=== PATIENT | female | born 1950 | race Caucasian/White ===

== ENCOUNTER → 2022-03-22 | Outpatient (CLI) | payer MEDICARE ==
[2022-03-22 15:42] LABS: CREATININE 0.7 mg/dL (0.5-1.5)
== END | disposition home or self-care (01) ==
LOC: LAB 14:55
PROVIDERS: ATTEND Neurological Surgery
DX: M54.16 Radiculopathy, lumbar region (principal)
CPT/HCPCS: 36415; 82565; 84520

== ENCOUNTER → 2022-04-19 | Outpatient (CLI) | payer MEDICARE ==
[~2022-04-19] MED LIST: GADOTERATE MEGLUMINE 10 MMOL/20 ML VIAL IV ONE
== END | disposition home or self-care (01) ==
LOC: RAH 13:51
PROVIDERS: ATTEND Neurological Surgery
DX: M47.26 Other spondylosis with radiculopathy, lumbar region (principal); M48.061 Spinal stenosis, lumbar region without neurogenic claudication
CPT/HCPCS: 72158; A9575

== ENCOUNTER 2022-07-14 05:38 | Day surgery (SDC) | payer OTHER ==
[2022-07-12 10:36] LABS: BASOPHILS % (AUTO) 0.6 % (0.0-5.0); EOSINOPHILS % (AUTO) 3.2 % (0.0-8.0); HEMATOCRIT 35.9 % (36-48); LYMPHOCYTES % (AUTO) 25.9 % (21.0-51.0); MEAN CORPUSCULAR HEMOGLOBIN 30.7 pg (27.0-33.0); MEAN CORPUSCULAR HGB CONC 32.9 g/dL (32.0-36.0); MEAN CORPUSCULAR VOLUME 93.5 fL (79-99); PLATELET COUNT (AUTO) 263 K/uL (130-400); RED BLOOD CELL COUNT(AUTO) 3.84 MIL/uL (4.00-5.50); WHITE BLOOD COUNT (AUTO) 6.3 K/uL (4.8-10.8)
[2022-07-12 10:42] LABS: CREATININE 0.6 mg/dL (0.5-1.5); POTASSIUM 3.6 mmol/L (3.5-5.1)
[2022-07-13 08:35] VITALS: BP 125/70
[2022-07-14] VITALS (11 sets, daily range): BP systolic 107–130; BP diastolic 52–65
[~2022-07-14] VITALS: Ht 167.6 cm; Wt 66.0 kg
[~2022-07-14 05:38] MED LIST changes: +BUPIVACAINE/PF 0.25% 10ML VIAL IJ ONE; -GADOTERATE MEGLUMINE 10 MMOL/20 ML VIAL IV ONE
[2022-07-14] MEDS ORDERED: LACTATED RINGERS 1000ML 1,000 ML IV ONE (06:18)
[2022-07-14] MEDS ORDERED: LISI5TAB21 PO (06:31)
[2022-07-14] MEDS ORDERED: METO-408 PO (06:31)
[2022-07-14] MEDS ORDERED: MONT-39 PO (06:31)
[2022-07-14] MEDS ORDERED: VENL-53 PO (06:31)
[2022-07-14] MEDS ORDERED: DONE10TA43 PO (06:31)
[2022-07-14] MEDS ORDERED: ISOS60TA77 PO (06:31)
[2022-07-14] MEDS ORDERED: BUSP10TA3 PO (06:31)
[2022-07-14] MEDS ORDERED: ATOR-2 PO (06:31)
[2022-07-14] MEDS ORDERED: EZET10TA48 PO (06:31)
[2022-07-14] MEDS ORDERED: IOHEXOL 180 MG/ML 20 ML VIAL ONE (07:49)
[2022-07-14] MEDS ORDERED: MIDAZOLAM HCL 1 MG/ML 2ML VIAL ONE (08:20)
[2022-07-14] MEDS ORDERED: PROPOFOL 10 MG/ML 20ML VIAL IV ONE (08:25)
[2022-07-14] MEDS ORDERED: FENTANYL CITRATE PF 50 MCG/1 ML 2ML VIAL ONE (08:25)
[2022-07-14] MEDS ORDERED: EPHEDRINE SULFATE 50 MG/ML AMPULE ONE (08:34)
[2022-07-14] MEDS ORDERED: ONDANSETRON 4MG INJ ONE (08:41)
== END 2022-07-14 10:05 | disposition home or self-care (01) ==
LOC: DAH 05:38
PROVIDERS: ATTEND Neurological Surgery
DX: M53.3 Sacrococcygeal disorders, not elsewhere classified (principal); Z20.822 Contact with and (suspected) exposure to COVID-19; J45.909 Unspecified asthma, uncomplicated; I10 Essential (primary) hypertension; Z88.0 Allergy status to penicillin; Z88.2 Allergy status to sulfonamides; Z79.899 Other long term (current) drug therapy
CPT/HCPCS: 87426; 80048; 85025; 36415; 93005; 72202; G0260; A4663; A4215 ×2; J7120; J3010; J3490 ×2; J2250; J2704; J2405; J1030; Q9965; A4223; A4222; A4221

== ENCOUNTER 2022-12-02 05:36 | Day surgery (SDC) | payer OTHER ==
[2022-12-01 08:38] LABS: BASOPHILS % (AUTO) 0.5 % (0.0-5.0); EOSINOPHILS % (AUTO) 1.9 % (0.0-8.0); HEMATOCRIT 33.7 % (36-48); LYMPHOCYTES % (AUTO) 43.2 % (21.0-51.0); MEAN CORPUSCULAR HEMOGLOBIN 31.1 pg (27.0-33.0); MEAN CORPUSCULAR HGB CONC 33.5 g/dL (32.0-36.0); MEAN CORPUSCULAR VOLUME 92.8 fL (79-99); PLATELET COUNT (AUTO) 263 K/uL (130-400); RED BLOOD CELL COUNT(AUTO) 3.63 MIL/uL (4.00-5.50); RED CELL DISTRIBUTION WIDTH 12.8 % (11.0-15.5); WHITE BLOOD COUNT (AUTO) 9.3 K/uL (4.8-10.8)
[2022-12-01 08:56] LABS: CREATININE 0.7 mg/dL (0.5-1.5); POTASSIUM 3.6 mmol/L (3.5-5.1)
[2022-12-01 09:12] VITALS: BP 128/67
[2022-12-02] VITALS (12 sets, daily range): BP systolic 103–126; BP diastolic 52–75
[~2022-12-02] VITALS: Ht 167.6 cm; Wt 67.7 kg
[~2022-12-02 05:36] MED LIST changes: +ATOR-2 PO; -BUPIVACAINE/PF 0.25% 10ML VIAL IJ ONE; +BUSP10TA3 PO; +DONE10TA43 PO; +EZET10TA48 PO; +ISOS60TA77 PO; +LISI5TAB21 PO; +METO-408 PO; +MONT-39 PO; +VENL-53 PO
[2022-12-02] MEDS ORDERED: LACTATED RINGERS 1000ML 1,000 ML IV ONE (06:14)
[2022-12-02] MEDS ORDERED: LIDOCAINE HCL 1% 20 ML VIAL ONE (06:38)
[2022-12-02] MEDS ORDERED: SODIUM BICARB [NEONATAL] 4.2% 10ML SYG ONE (06:39)
[2022-12-02] MEDS ORDERED: BUPIVACAINE/PF 0.25% 10ML VIAL IJ ONE (06:39)
[2022-12-02] MEDS ORDERED: FENTANYL CITRATE PF 50 MCG/1 ML 2ML VIAL ONE (06:53)
[2022-12-02] MEDS ORDERED: MIDAZOLAM HCL 1 MG/ML 2ML VIAL ONE (06:53)
[2022-12-02] MEDS ORDERED: IOHEXOL 180 MG/ML 20 ML VIAL ONE (07:19)
[2022-12-02] MEDS ORDERED: LIDOCAINE HCL 1% 10 ML VIAL MISC ONE (07:35)
[2022-12-02] MEDS ORDERED: SODIUM BICARB 8.4% 50ML SYRINGE IVP ONE (07:35)
== END 2022-12-02 09:05 | disposition home or self-care (01) ==
LOC: DAH 05:36
PROVIDERS: ATTEND Neurological Surgery
DX: M53.3 Sacrococcygeal disorders, not elsewhere classified (principal); Z20.822 Contact with and (suspected) exposure to COVID-19; I10 Essential (primary) hypertension; I25.10 Atherosclerotic heart disease of native coronary artery without angina pectoris; I25.2 Old myocardial infarction; Z88.0 Allergy status to penicillin; Z98.890 Other specified postprocedural states; Z87.891 Personal history of nicotine dependence
CPT/HCPCS: 87426; 80048; 85025; 36415; 93005; 72202; A6260; G0260; A4663; J7120; J3010; J3490 ×4; J2250; J1030 ×2; Q9965; A4215; A4223; A4222; A4221

== ENCOUNTER → 2024-09-17 | Outpatient (CLI) | payer OTHER ==
[~2024-09-17] VITALS: Ht 167.6 cm; Wt 67.6 kg
[~2024-09-17] MED LIST changes: +ACET-2521 PO; +AMIO100T4 PO; +AMIO200T44 PO; +ASPI-1005 PO; +ASPI-1443 PO; -ATOR-2 PO; +ATOR40TA69 PO; +BIOTIN PO; +BREYNA IH; +CHOL2000 PO; +CLOP-31 PO; +DOXE6TAB4 PO; -EZET10TA48 PO; +EZET10TA81 PO; +FLUT16H NS; +FLUTICASONE PROPIONATE 50 MCG EN; +FURO20TA6 PO; +IPRA21SP NS; -ISOS60TA77 PO; +LEVA15HF3 IH; -LISI5TAB21 PO; +MELA5TAB66 PO; -METO-408 PO; +METO25 PO; +NITR0.4T50 SL; +PANT40TA54 PO; +POTA99TA17 PO; +TYLENOL ARTHRITIS PO
[2024-09-17 13:21] VITALS: BP 139/80; PULSE 69; RESP 16; TEMP 97.7
[2024-09-17 13:30] LABS: BASOPHILS # (AUTO) 0.04 K/uL (0.00-0.20); BASOPHILS % (AUTO) 0.7 % (0.0-5.0); EOSINOPHILS # (AUTO) 0.35 K/uL (0.00-0.70); EOSINOPHILS % (AUTO) 5.9 % (0.0-8.0); HEMATOCRIT 33.6 % (36-48); IMMATURE GRANULOCYTE ABSOLUTE 0.02 K/uL (0-1); LYMPHOCYTES # (AUTO) 1.7 K/uL (1.0-4.8); LYMPHOCYTES % (AUTO) 29.1 % (21.0-51.0); MEAN CORPUSCULAR HEMOGLOBIN 30.4 pg (27.0-33.0); MEAN CORPUSCULAR HGB CONC 31.8 g/dL (32.0-36.0); MEAN CORPUSCULAR VOLUME 95.5 fL (79-99); MONOCYTES # (AUTO) 0.5 K/uL (0.1-1.0); MONOCYTES % (AUTO) 8.5 % (3.0-13.0); NEUTROPHILS # (AUTO) 3.3 K/uL (1.8-7.7); NEUTROPHILS % (AUTO) 55.5 % (40.0-77.0); PLATELET COUNT (AUTO) 421 K/uL (130-400); RED BLOOD CELL COUNT(AUTO) 3.52 MIL/uL (4.00-5.50); RED CELL DISTRIBUTION WIDTH 14.6 % (11.0-15.5)
[2024-09-17 13:38] LABS: ADD UA MICROSCOPIC NO; APPEARANCE,URINE CLEAR (CLEAR); BILIRUBIN,URINE NEGATIVE (NEGATIVE); COLOR,URINE COLORLESS (YELLOW); GLUCOSE, URINE (UA) NEGATIVE (NEGATIVE); KETONES,URINE NEGATIVE (NEGATIVE); LEUKOCYTE ESTERASE ,URINE NEGATIVE Leu/uL (NEGATIVE); NITRATE,URINE NEGATIVE (NEGATIVE); OCCULT BLOOD,URINE NEGATIVE (NEGATIVE); PH,URINE 6.5 (5.0-8.0); PROTEIN,URINE NEGATIVE (NEGATIVE); UROBILINOGEN,URINE 0.2 mg/dL (0.2-1.0)
[2024-09-17 13:42] LABS: CREATININE 0.8 mg/dL (0.5-1.0); POTASSIUM 3.3 mmol/L (3.5-5.1)
[2024-09-17 13:51] LABS: B-TYPE NATRIURETIC PEPTIDE 566 pg/mL (0-100)
[2024-09-17 13:53] LABS: INR 0.98 (0.85-1.15); PROTHROMBIN TIME 10.4 SEC (9.6-11.6)
[2024-09-17 13:54] LABS: PARTIAL THROMBOPLASTIN TIME 26.5 SEC (26.3-35.5)
--- NOTE | 2024-09-17 14:02 | EKG ---
[facility] Test Date: 2024-09-17 Test Time: 13:04:04 Pat Name: JASON AYOUB Department: [facility] Room: Gender: F Rose Grower: [id number] : 1950 Requested By: EUSEBIO MANNING Order Number: [id number] Reading MD: Eusebio Manning Measurements Intervals [place] Rate: 62 P: 56 MN: 177 QRS: 40 QRSD: 82 T: 142 QT: 489 QTc: 497 Interpretive Statements Sinus rhythm Ventricular premature complex Abnormal T, consider ischemia, lateral leads Compared to ECG 08/29/2024 20:28:58 Ventricular premature complex(es) now present T-wave abnormality now present Possible ischemia now present ST (T wave) deviation no longer present Myocardial infarct finding no longer present Electronically Signed On 09-19-2024 07:07:20 CDT by Eusebio Manning Please click the below link to view image of tracing.
--- NOTE | 2024-09-17 14:09 | HMCIMG ---
CHEST 1VW HISTORY: Preop COMPARISON: 09/01/2024 FINDINGS: A frontal projection of the chest was obtained. No acute pulmonary infiltrates is seen. Poststernotomy changes are seen. The heart is enlarged. Degenerative changes of the thoracolumbar spine are present. Small left pleural effusion is seen. No evidence of aortic calcification is seen. IMPRESSION: 1. No acute pulmonary infiltrate is seen. Small left pleural effusion is seen.
== END | disposition home or self-care (01) ==
LOC: DAH 12:18 → EDSTATUS 09-18 12:00
PROVIDERS: ATTEND Internal Medicine Cardiovascular Disease
DX: Z01.818 Encounter for other preprocedural examination (principal); J90 Pleural effusion, not elsewhere classified; I49.3 Ventricular premature depolarization; I51.7 Cardiomegaly; I21.9 Acute myocardial infarction, unspecified; I25.118 Atherosclerotic heart disease of native coronary artery with other forms of angina pectoris; M47.815 Spondylosis without myelopathy or radiculopathy, thoracolumbar region; I10 Essential (primary) hypertension; E78.5 Hyperlipidemia, unspecified; I25.2 Old myocardial infarction; Z98.890 Other specified postprocedural states; Z95.5 Presence of coronary angioplasty implant and graft
CPT/HCPCS: 36415; 71045; 80048; 81003; 83880; 85025; 85610; 85730; 93005

== ENCOUNTER 2025-01-09 11:20 | Inpatient (IN) | payer OTHER ==
[~2025-01-09] VITALS: Ht 167.6 cm; Wt 66.7 kg
[~2025-01-09 11:20] MED LIST changes: -ACET-2521 PO; -AMIO200T44 PO; -ASPI-1005 PO; -FLUTICASONE PROPIONATE 50 MCG EN; -FURO20TA6 PO; -IPRA21SP NS; -MELA5TAB66 PO; -PANT40TA54 PO; -POTA99TA17 PO; -TYLENOL ARTHRITIS PO
[2025-01-09] MEDS ORDERED: PoTASSium chl 10% ELIXIR 20MEQ 20 MEQ/15 ML UDCUP PO PRN (12:00)
[2025-01-09 12:02] LABS: NUCLEATED RED BLOOD CELLS 0.0 % (0.0-0.19); PLATELET COUNT (AUTO) 281 K/uL (130-400); RED BLOOD CELL COUNT(AUTO) 4.17 MIL/uL (4.00-5.50); RED CELL DISTRIBUTION WIDTH 17.7 % (11.0-15.5); WHITE BLOOD COUNT (AUTO) 8.6 K/uL (4.8-10.8)
[2025-01-09 12:03] LABS: CREATININE 0.7 mg/dL (0.5-1.0); GLOMERULAR FILTR. RATE CALC 91.0 mL/min (>90); GLUCOSE,RANDOM 129.0 mg/dL (70-105); SODIUM SERUM 143.0 mmol/L (136-145); UREA NITROGEN, BLOOD 24.0 mg/dL (7-18)
[2025-01-09 12:07] LABS: INR 0.97 (0.85-1.15)
[2025-01-09] MEDS ORDERED: BUDE0.5A3 NEB (13:24)
[2025-01-09] MEDS ORDERED: PROM6.2523 PO (13:24)
[2025-01-09] MEDS ORDERED: FURO20TA4 PO (13:24)
[2025-01-09] MEDS ORDERED: PRED20TA3 PO (13:24)
[2025-01-09] MEDS ORDERED: BENZ200C53 PO (13:24)
[2025-01-09] MEDS ORDERED: CETI10TA57 PO (13:24)
[2025-01-09] MEDS ORDERED: IPRA21SP NS (13:24)
[2025-01-09] MEDS ORDERED: DOXY100C5 PO (13:24)
--- NOTE | 2025-01-09 14:11 | NUR ---
DCP: Return to [facility] met with pt and friend at bedside. Pt has a cottage at [facility] where she lives independently at home alone. JK provides house keeping 2x a month, she is able to cook, do laundry, drive, and complete her ADLS on her own. Pt needs to DME at this time, no HH or HD. PCP is Adán Folyd and she uses [facility] for her rx needs. [place]. Sister /JINA Windy Sorenson [phone]. Pt only wants sister called if its life threatening ER, for anything else call friend Rocío Virgilio [phone]. Addendum: 01/09/25 at 1427 by DEEJAY BRUSH Amended: Links added.
--- NOTE | 2025-01-09 14:15 | NUR ---
GAVE REPORT TO AJ GOTTI.
[2025-01-09 14:59] VITALS: BP 117/73; PULSE 58; RESP 16; TEMP 97.9
[2025-01-09 20:00] VITALS: BP 115/63; PULSE 65; RESP 18; TEMP 98.4
[2025-01-09 20:09] VITALS: O2SAT 97
[2025-01-09] MEDS: DOXYCYCLINE HYCLATE 100 MG TABLET PO SCH (20:43)
[2025-01-09 22:00] VITALS: O2SAT 98
[2025-01-10] VITALS (9 sets, daily range): BP systolic 99–144; BP diastolic 48–87; PULSE 56–74; RESP 16–18; TEMP 97.5–98.2; O2SAT 96–97
[2025-01-10 04:57] LABS: CREATININE 0.9 mg/dL (0.5-1.0); GLOMERULAR FILTR. RATE CALC 67.0 mL/min (>90); GLUCOSE,RANDOM 95.0 mg/dL (70-105); SODIUM SERUM 144.0 mmol/L (136-145); UREA NITROGEN, BLOOD 23.0 mg/dL (7-18)
[2025-01-10] MEDS: PoTASSium chloRIDE 20MEQ ER 20 MEQ ERTAB PO PRN (05:09)
--- NOTE | 2025-01-10 07:16 | PN ---
[facility] Cardiology Progress Note CARDIOLOGY PROGRESS NOTE JANUARY 10, 2025 Problems: 1. Acute on chronic systolic heart failure 2. CAD status post remote stenting procedures with progression of disease status post aortocoronary bypass graft surgery August 2024 with a WHITTEN graft to the LAD and saphenous graft to the 1st obtuse marginal artery with documented rotation of occluded grafts September 2024 status post high-risk stenting of a distal left main bifurcation with Impella support 3. Asthma recently started on treatment for acute bronchitis at an urgent care center 4. Hypertension 5. Dyslipidemia 6. Normocytic anemia 7. Noncompliance with clopidogrel therapy The patient was recently seen at an urgent care center for shortness of breath and cough and placed on doxycycline for acute bronchitis. The same time she has been experiencing significant shortness of breath with the exertion and some chest pressure sensation. Since admission her BNP level was 640 and troponins x2 has been normal. EKG in the office showed no acute ST changes. A 2D echocardiogram is pending today. The patient had not been compliant with clopidogrel and has been off this medicine for at least a month. She was loaded with 300 mg of clopidogrel yesterday in the starting back on75 mg daily today. Overnight she diuresed 1700 cc and is feeling much better. Currently she has no pain or shortness of breath. Blood pressure is running 100-110 systolic. Heart rate is in the 50s. White count 8.6 hemoglobin 10.3 Platelet count [id number] potassium 3.9 which will be supplemented BUN23 creatinine 0.9. The patient continues on amiodarone aspirin atorvastatin clopidogrel acetamide furosemide metoprolol tartrate potassium protocol. We are going to resume her losartan medication. We have discussed options today. One option would be to proceed directly with left heart catheterization to check the status of her stents. Given her dramatic improvement overnight however a 2nd option will be to obtain a Cardiolite stress test and consider catheterization if there was objective evidence of ischemia. After discussion she would like to proceed with 2D echo and Cardiolite stress test today. BURAK MANNING MD Jan 10, 2025 07:16
[2025-01-10] MEDS ORDERED: REGADENOSON 0.4 MG/5 ML PF SYG IVP ONE (09:28)
[2025-01-10] MEDS: ASPIRIN 81 MG EC TAB PO SCH (12:47)
[2025-01-10] MEDS: EZETIMIBE 10 MG TAB PO SCH (12:48)
--- NOTE | 2025-01-10 13:00 | NUR ---
EDUCATION: FLUID RESTRICTION OF 1.5 L/24 HOURS REINFORCED. PATIENT VERBALIZED UNDERSTANDING.
--- NOTE | 2025-01-10 13:37 | NUR ---
0727: TAKEN TO [facility] ED DEPT FOR STRESS TEST. 1200: STRESS TEST COMPLETED. GIVEN LUNCH MEAL AND A.M. SCHEDULED MEDS.
--- NOTE | 2025-01-10 15:31 | HMCSR ---
APPROVED REPORT Height: 5 ft 6in Weight: 147 lbs TEST INDICATIONS CAD, Congestive Heart Failure The imaging protocol used to acquire images was Rest TI-201/Stress Tc-99m Consent: The procedure was explained and understood by the patient. Informerd consent was witnessed Ilia Angulo RN First, low dose rest was performed then high dose stress. RESTING DATA: The resting ekg shows: NSR Rest SPECT myocardial perfusion imaging was performed in supine position minutes following the intra venous injection of 10 mCi of Tc-99 Sestamibi. Time of rest injection: 07:54: Date: 01/10/2025 PHARMACOLOGIC STRESS: Pharmacologic stress test was performed by injecting regadenoson 0.4 mg IV push followed by the intra venous injection of 27 mCi of Tc-99 Sestamibi. Time of stress injection: 09:34: Date: 01/10/2025 Heart Rate at time of stress injection: 57 bpm. Gated Stress SPECT was performed 60 minutes after stress injection. The images were gated to evaluate regional wall motion and calculate left ventricular ejection fracti on. STRESS DETAILS Reason for Termination: Infusion complete Stress Symptoms: Nause, Throat discomfort Max HR Achieved: 99 bpm % of APMHR Achieved: 79 Max Blood Pressure: 126/77 mmHg Stress ECG: NSR, bigeminy Study quality was good. Lung uptake was Normal. Artifact: No artifact IMPRESSION Severely abnormal pharmacologic nuclear stress test. Conclusion Fixed inferior and lateral olson consistent with scar. LVEF 44%. TID 1.11.
--- NOTE | 2025-01-10 16:32 | HMCSR ---
APPROVED REPORT EXAM: Two-dimensional and M-mode echocardiogram with Doppler and color Doppler. INDICATION ICD: Assess left ventricular ejection fraction 2D Dimensions RVDd3.7 cmLVEF(%)34.4 (>50%)LVED Vol(simp.)131.0 mL IVSd0.7 (0.7-1.1cm)FS(%)17 %LVES Vol(simp.)79.0 mL LVDd5.3 (3.8-5.6cm)LA (2D)4.0 (1.6-4.0cm)LVEF(%, simp.)40 % PWd1.0 (0.7-1.1cm)Ao Root(2D)2.4 (2.0-3.7cm)LA ESV INDEX (BP)52.85 mL/m2 LVDs4.4 (2.5-4.0cm)LVOT diam1.8 (1.8-2.4cm) IVC diam1.9 cm Deformation Strain Apical 4-12.5 % Apical 2-11.9 % Apical 3-11.2 % Global Strain-11.9 % M-Mode Dimensions EPSS1.3 cm LA (MM)3.8 (1.6-4.0cm) Ao Root(MM)2.3 (2.0-3.7cm) Aortic Valve AoV Vmax1.5 m/Juan Carlos Peak GR9.5 mmHgLVOT Vmax1.0 m/s AoV VTI0.3 mAo Mean GR5.5 mmHgLVOT VTI0.23 m ANKITA (VMAX)1.63 cm2AVA (VTI) 1.8 cm2 Mitral Valve MV E Mmep484.7 cm/sDECEL Emzj888 ms MV A Vmax51.3 cm/sP 1/2 T76 ms E/A ratio2.5MVA (PHT)2.9 cm2 TDI E/E' Xjpyov62.4E/E' Gdlmxhr65.5 Medial E' Peak V4.00 cm/sLateral E' Peak V8.93 cm/s Pulmonary Valve PV Vmax1.0 m/sPV VTI0.19 mPV Mean GR2.1 mmHg PV Peak GR3.6 mmHgPI End Cherrie. Jerry 96.3 cm/s Tricuspid Valve TR Vmax2.9 m/sRAP (EST) 3 xlXdSOSN17.3 mmHg TR Peak GR38.3 mmHg Left Ventricle The left ventricle is normal size. There is global hypokinesis of the left ventricle. There is normal left ventricular wall thickness. LVEF is 35-40%. 3D volume EF 40% Stage III diastolic dysfunction. Right Ventricle The right ventricle is normal size. Right ventricular systolic function is normal. Atria The left atrium is severely dilated. LASVI 53ml/m Atrial septum is bowed toward the right.. The righ t atrium is dilated. Aortic Valve Aortic valve is trileaflet. Nodular calcification of the left coronary cusp leaflet noted measuring 0 .2cm No aortic regurgitation is present. There is no aortic valvular stenosis. Mitral Valve The mitral valve is mildly thickened but opens well. There is mild to moderate mitral valve regurgita tion noted. There is no mitral valve stenosis. Tricuspid Valve The tricuspid valve is normal in structure. There is mild tricuspid valve regurgitation noted. Pulmonic Valve Pulmonic valve is not well visualized. There is mild pulmonic valvular regurgitation. Great Vessels The aortic root is normal in size. The IVC is normal in size and collapses >50% with inspiration. Pericardium There is no pericardial effusion. Other Information Quality : Adequate Conclusion The left ventricle is normal size. LVEF is 35-40%. 3D volume EF 40% There is global hypokinesis of the left ventricle. Stage III diastolic dysfunction. Right ventricular systolic function is normal. The left atrium is severely dilated. LASVI 53ml/m Aortic valve is trileaflet. Nodular calcification of the left coronary cusp leaflet noted measuring 0 .2cm There is mild to moderate mitral valve regurgitation noted. There is no pericardial effusion.
[2025-01-10] MEDS: SACUBITRIL/VALSARTAN 1 EACH TABLET PO SCH (20:28)
[2025-01-11 03:59] VITALS: BP 94/61; PULSE 77; RESP 16; TEMP 97.7
[2025-01-11 05:15] LABS: CREATININE 0.8 mg/dL (0.5-1.0); GLOMERULAR FILTR. RATE CALC 77.0 mL/min (>90); GLUCOSE,RANDOM 135.0 mg/dL (70-105); SODIUM SERUM 143.0 mmol/L (136-145); UREA NITROGEN, BLOOD 24.0 mg/dL (7-18)
--- NOTE | 2025-01-11 07:30 | PN ---
[facility] Cardiology Progress Note DISCHARGE SUMMARY JANUARY 11, 2025 Final diagnoses: 1. Acute on chronic systolic heart failure 2. CAD status post remote stenting procedures with progression of disease status post aortocoronary bypass graft surgery August 2024 with a WHITTEN graft to the LAD and saphenous graft to the 1st obtuse marginal artery with documented rotation of occluded grafts September 2024 status post high-risk stenting of a distal left main bifurcation with Impella support 3. Asthma recently started on treatment for acute bronchitis at an urgent care center 4. Hypertension 5. Dyslipidemia 6. Normocytic anemia 7. Noncompliance with clopidogrel therapy This patient developed shortness of breath. She was seen at an urgent care and prescribed doxycycline for acute bronchitis. She came to the office and was still symptomatic. Clinically she appeared to be in congestive heart failure. She was admitted and brain natriuretic peptide level was 640 troponins x2 were normal. 2D echo shows an ejection fraction of 35-40% down from previous ejection fraction of 40-45%. She underwent a Cardiolite stress test which shows a fixed defect in the lateral wall with no reversible ischemia. She has been diuresing and within 24 hours was feeling much better. Today she denies any chest pain or shortness of breath. Blood pressure is running around 100 systolic. Heart rate is in the 60-70. Telemetry shows sinus rhythm. Potassium 3.8 BUN 24 creatinine 0.8 sodium 143. She has diuresed 2.9 L in the last 24 hours. Her medications has been optimized. She is currently on amiodarone aspirin atorvastatin clopidogrel doxycycline empagliflozin acetamide furosemide 40 mg IV q.12 hours metoprolol succinate potassium protocol Entresto and spironolactone. We will switch over to oral diuretics today. Currently she is sitting upright lungs are clear and she is feeling much better. She still has some cough and we will continue with her doxycycline as an outpatient for her acute bronchitis. I will see her next week in the office and repeat potassium level at that time. The patient has been informed that as she is having any difficulty obtaining prescriptions to contact us immediately. BURAK MANNING MD Jan 11, 2025 07:30
[2025-01-11] MEDS ORDERED: METO25TA3 PO (07:35)
[2025-01-11] MEDS ORDERED: EMPA10TA PO (07:35)
[2025-01-11] MEDS ORDERED: CLOP-31 PO (07:35)
[2025-01-11] MEDS ORDERED: SACU1TAB PO (07:35)
[2025-01-11] MEDS ORDERED: SPIR25TA6 PO (07:35)
[2025-01-11] MEDS ORDERED: AEC81 PO (07:35)
[2025-01-11] MEDS ORDERED: FURO40TA5 PO (07:35)
[2025-01-11 08:00] VITALS: BP 124/80; PULSE 87; RESP 19; TEMP 98.5; O2SAT 95
[2025-01-11] MEDS: EMPAGLIFLOZIN 10MG TABLET PO SCH (08:54)
[2025-01-11] MEDS: SPIRONOLACTONE 25 MG TAB PO SCH (08:54)
--- NOTE | 2025-01-11 09:15 | NUR ---
DISCHARGE INSTRUCTIONS GIVEN, VERBALIZED UNDERSTANDING. REMOVED TELE PACK. REMOVED IV FROM LEFT ARM, IV SITE WITHOUT REDNESS NOTED.
--- NOTE | 2025-01-11 09:27 | NUR ---
TAKEN TO PRIVATE CAR ALONG WITH PERSONAL BELONGINGS VIA WHEELCHAIR BY HARJEET SCHNEIDER.
== END 2025-01-11 09:40 | disposition home or self-care (01) | DRG 291 ==
LOC: EDH 11:20 → EDHIP 11:21 → 2DH 14:20
PROVIDERS: ADMIT Internal Medicine Cardiovascular Disease; ATTEND Internal Medicine Cardiovascular Disease
PROC: 4A02XM4 Measurement of Cardiac Total Activity, External Approach (ICD-10-PCS; principal; 2025-01-10)
PROC: 3E073KZ Introduction of Other Diagnostic Substance into Coronary Artery, Percutaneous Approach (ICD-10-PCS; 2025-01-10)
DX: I11.0 Hypertensive heart disease with heart failure (principal); I50.23 Acute on chronic systolic (congestive) heart failure; J45.909 Unspecified asthma, uncomplicated; E78.5 Hyperlipidemia, unspecified; D64.9 Anemia, unspecified; I25.10 Atherosclerotic heart disease of native coronary artery without angina pectoris; J20.9 Acute bronchitis, unspecified; Z79.02 Long term (current) use of antithrombotics/antiplatelets; Z91.148 Patient's other noncompliance with medication regimen for other reason; Z95.1 Presence of aortocoronary bypass graft; Z95.5 Presence of coronary angioplasty implant and graft
CPT/HCPCS: 36415; 76376; 78452; 80048; 83735; 83880; 84132; 84484; 85027; 85610; 93017; 93306; 93356; A9500; G0378; J1938; J2785